=== PATIENT | female | born 1940 | race African-American/Black ===

== ENCOUNTER 2016-08-13 08:57 | Inpatient (IN) | payer OTHER ==
[~2016-08-13] VITALS: Ht 162.6 cm; Wt 81.6 kg
--- NOTE | 2016-08-13 09:17 | NUR ---
TELESTROKE CALLED [phone], DR. HAMILTON WATER LEAK REPAIRER
--- NOTE | 2016-08-13 09:22 | NUR ---
PT TAKEN TO CT VIA CHAN
[2016-08-13] MEDS ORDERED: ASPIRIN 325 MG TABLET ONE (09:49)
[2016-08-13] MEDS ORDERED: LOSA50TA21 PO (09:52)
[2016-08-13] MEDS ORDERED: DICL75TA5 PO (09:52)
[2016-08-13] MEDS ORDERED: GABA-534 PO (09:52)
[2016-08-13] MEDS ORDERED: LORA1TAB PO (09:52)
[2016-08-13] MEDS ORDERED: TRAM50TA2 PO (09:53)
[2016-08-13] MEDS ORDERED: ZOLP10TA6 PO (09:53)
[2016-08-13] MEDS ORDERED: CYCL-343 PO (09:53)
[2016-08-13] MEDS ORDERED: HYDR25TA4 PO (09:53)
[2016-08-13] MEDS ORDERED: AMIT10TA6 PO (09:53)
[2016-08-13] MEDS ORDERED: ASPIRIN 325 MG TABLET PO ONE (10:00)
[2016-08-13 10:21] LABS: EOSINOPHILS % (AUTO) 1.2 % (0.0-6.0); HEMATOCRIT 36 % (33-45); HEMOGLOBIN 11.4 g/dL (11.5-14.8); LYMPHOCYTES # (AUTO) 1.3 /CMM (0.8-4.8); LYMPHOCYTES % (AUTO) 31.6 % (20.0-44.0); MEAN CORPUSCULAR HEMOGLOBIN 24 PG (26.0-33.0); MEAN CORPUSCULAR HGB CONC 32 g/dl (31.0-36.0); MEAN CORPUSCULAR VOLUME 75 fL (82-100); MONOCYTES # (AUTO) 0.4 /CMM (0.1-1.30); MONOCYTES % (AUTO) 8.9 % (2.0-12.0); NEUTROPHILS # (AUTO) 2.4 /CMM (1.8-8.9); NEUTROPHILS % (AUTO) 57.3 % (43.0-81.0); PLATELET COUNT (AUTO) 164 /CMM (150-450); RDW COEFFICIENT OF VARIATION 14.4 (11.5-15.0); RED BLOOD CELL COUNT(AUTO) 4.82 MIL/uL (4.0-5.2); WHITE BLOOD COUNT (AUTO) 4.1 K/uL (4.3-11.0)
[2016-08-13 10:37] LABS: ALANINE AMINOTRANSFERASE 18 U/L (12-78); ALBUMIN 3.5 g/dL (3.4-5.0); ALKALINE PHOSPHATASE 118 U/L (46-116); ASPARTATE AMINOTRANSFERASE 22 U/L (15-37); BILIRUBIN,DIRECT 0.1 mg/dL (0.0-0.2); BILIRUBIN,TOTAL 0.3 mg/dL (0.2-1.0); CALCIUM, SERUM 9.3 mg/dL (8.5-10.1); CARBON DIOXIDE 28 mmol/L (21-32); CHLORIDE 108 mmol/L (98-107); GLUCOSE 89 mg/dL (74-106); POTASSIUM 4.2 mmol/L (3.5-5.1); SODIUM SERUM 140 mmol/L (136-145); TOTAL PROTEIN, SERUM 7.1 g/dL (6.4-8.2)
[2016-08-13 10:39] LABS: TROPONIN I < 0.017 ng/mL (0.00-0.056)
[2016-08-13 10:53] LABS: UREA NITROGEN, BLOOD 17 mg/dL (7-18)
[2016-08-13 10:57] LABS: PROTHROMBIN TIME 10.4 SECS (9.5-12.7)
--- NOTE | 2016-08-13 11:02 | NUR ---
contacted dr. schreiber [phone], - ellie schultz
--- NOTE | 2016-08-13 11:38 | NUR ---
GAVE REPORT TO JOVANNY HERNDONPUBLIC POLICY MANAGER ROOM [address] MURGUIA. WILL TRANSFER VIA ACLS PROTOCOL.
--- NOTE | 2016-08-13 12:00 | NUR ---
CLINICAL TRIAL DATA MANAGERTOPPER PRESS OPERATOR NOTE PATIENT IS ALERT AND ORIENTED x4. ADMITTED FROM EMERGENCY ROOM FOR RIGHT SIDED WEAKNESS. R/O POSSIBLE CVA/STROKE. IV INTACT AND PATENT NO REDNESS OR SWELLING NOTED. ON TELE, NORMAL SINUS RHYTHM WITH PULSE AT 72. HISTORY OF ARTHRITIS, BILATERAL HIP SURGERY, KNEE REPLACEMENT AND . NO PAIN AT THIS TIME. NO SOB OR DISTRESS NOTED. CALL LIGHT WITHIN REACH. SAFETY MEASURES IMPLEMENTED. SKIN INTACT. CARDIAC DIET. WILL CONTINUE TO MONITOR
[2016-08-13 12:30] VITALS: BP 157/68
--- NOTE | 2016-08-13 12:30 | NUR ---
CERAMIC SPRAYER NOTE PATIENT IS BEING TAKEN TO MRI IN WHEELCHAIR. PATIENT IS STABLE. NO PAIN AT THIS TIME. MRI CHECKLIST DONE.
--- NOTE | 2016-08-13 14:13 | NUR ---
BUSINESS SUPPORT ASSISTANT NOTE PATIENT IS BACK FROM MRI NO PAIN AT THIS TIME. NO SOB OR DISTRESS NOTED. WILL CONTINUE TO MONITOR
[2016-08-13] MEDS ORDERED: LORAZEPAM 1 MG TABLET PO PRN (15:30)
[2016-08-13] MEDS ORDERED: ZOLPIDEM TARTRATE 10 MG TABLET PO PRN (15:30)
[2016-08-13] MEDS ORDERED: TRAMADOL HCL 50 MG TABLET PO PRN ×2 (15:30→17:00)
[2016-08-13 16:00] VITALS: BP 171/64
[2016-08-13] MEDS ORDERED: DICLOFENAC SODIUM 25 MG TABLET.DR PO PRN (16:01)
[2016-08-13] MEDS: GABAPENTIN 300 MG CAPSULE PO SCH (17:08)
[2016-08-13] MEDS: AMITRIPTYLINE HCL 10 MG TABLET PO SCH (17:08)
--- NOTE | 2016-08-13 18:56 | NUR ---
PIN PUSHER CLOSING NOTE PATIENT IS ALERT AND ORIENTED x4. NO PAIN AT THIS TIME. NO SOB OR DISTRESS NOTED. ALL DUE MEDICATIONS GIVEN ORDERED. SAFETY MEASURES IMPLEMENTED. CALL LIGHT WITHIN REACH AT ALL TIMES. IV INTACT AND PATENT. WILL ENDORSE TO SPINNING MACHINE TENDER NURSE
--- NOTE | 2016-08-13 19:30 | NUR ---
TELE/RN NOTES RECEIVED PT. LYING IN BED. AWAKE, ALERT AND ORIENTED X3. BREATHING EVEN AND UNLABORED ON ROOM AIR. NO SOB, RESPIRATORY DISTRESS OR COMPLAINTS OF PAIN NOTED AT THIS TIME. PT. WITH EXTERNAL FIELD CROP II FARMWORKER PRESENT AND INTACT. CURRENT RHYTHM = SINUS RHYTHM HR 65. PT. WITH LEFT AC 20 GAUGE IV SALINE LOCK PRESENT, PATENT AND INTACT. BED IN LOWEST POSITION, CALL LIGHT WITHIN REACH, WILL CONTINUE TO MONITOR.
[2016-08-13 20:00] VITALS: BP 172/67
[2016-08-13 21:45] VITALS: BP_SYST 153
[2016-08-13] MEDS ORDERED: ATORVASTATIN 40 MG TABLET PO SCH (22:00)
[2016-08-13] MEDS ORDERED: LOSARTAN POTASSIUM 50 MG TABLET PO SCH (22:00)
[2016-08-13] MEDS ORDERED: CYCLOBENZAPRINE 10 MG TABLET PO SCH (22:00)
[2016-08-14] VITALS: BP 163/80
[2016-08-14 04:00] VITALS: BP 155/63
[2016-08-14 06:53] LABS: BASOPHILS % (AUTO) 0.4 % (0.0-2.0); EOSINOPHILS # (AUTO) 0.1 /CMM (0.0-0.7); EOSINOPHILS % (AUTO) 1.9 % (0.0-6.0); HEMATOCRIT 39 % (33-45); HEMOGLOBIN 12.1 g/dL (11.5-14.8); LYMPHOCYTES # (AUTO) 1.8 /CMM (0.8-4.8); LYMPHOCYTES % (AUTO) 38.2 % (20.0-44.0); MEAN CORPUSCULAR HEMOGLOBIN 23 PG (26.0-33.0); MEAN CORPUSCULAR HGB CONC 32 g/dl (31.0-36.0); MEAN CORPUSCULAR VOLUME 74 fL (82-100); MONOCYTES # (AUTO) 0.4 /CMM (0.1-1.30); MONOCYTES % (AUTO) 8.8 % (2.0-12.0); NEUTROPHILS # (AUTO) 2.4 /CMM (1.8-8.9); NEUTROPHILS % (AUTO) 50.7 % (43.0-81.0); PLATELET COUNT (AUTO) 189 /CMM (150-450); RDW COEFFICIENT OF VARIATION 14.9 (11.5-15.0); RED BLOOD CELL COUNT(AUTO) 5.21 MIL/uL (4.0-5.2); WHITE BLOOD COUNT (AUTO) 4.8 K/uL (4.3-11.0)
[2016-08-14 06:58] VITALS: BP 165/63
[2016-08-14 07:05] LABS: CALCIUM, SERUM 9.4 mg/dL (8.5-10.1); CREATININE 0.9 mg/dL (0.6-1.3); POTASSIUM 4.3 mmol/L (3.5-5.1)
[2016-08-14 07:16] LABS: THYROID STIMULATING HORMONE 1.759 uIU/mL (0.358-3.74)
--- NOTE | 2016-08-14 07:20 | NUR ---
FIRER MARINE NOTES FOUND PATIENT ALERT AND ORIENTED, STANDING BY THE BED, ATTENDED NEEDS, NO S/SX OF DISTRESS NOTED, NO COMPLAINT OF PAIN OR RIGHT HAND WEAKNESS AT THIS TIME, SAFETY MEASURES IN PLACED, CALL LIGHT WITHIN REACH, WILL CONTINUE TO MONITOR.
[2016-08-14 08:00] VITALS: BP 165/63
[2016-08-14] MEDS ORDERED: HYDROCHLOROTHIAZIDE 25 MG TABLET PO SCH (09:00)
[2016-08-14] MEDS ORDERED: ASPIRIN EC 325 MG TABLET.DR PO SCH (09:00)
[2016-08-14 09:09] VITALS: BP 165/63
[2016-08-14 09:09] LABS: LYMPHOCYTES % (MANUAL) 47 % (16-48); MONOCYTES % (MANUAL) 5 % (0-11.0); NEUTROPHILS % (MANUAL) 48 (42-76)
[2016-08-14] MEDS: GABAPENTIN 300 MG CAPSULE PO SCH (09:09)
[2016-08-14] MEDS: AMITRIPTYLINE HCL 10 MG TABLET PO SCH (09:09)
[2016-08-14 09:11] LABS: PLATELET ESTIMATE ADEQUATE
[2016-08-14 09:12] LABS: ANISOCYTOSIS 1+; HYPOCHROMASIA 1+
[2016-08-14] MEDS ORDERED: ATOR40TA PO (11:31)
[2016-08-14] MEDS ORDERED: Aspirin PO (11:31)
--- NOTE | 2016-08-14 14:00 | NUR ---
RN MS NOTES PATIENT RECEIVED DISCHARGED INSTRUCTIONS AND VERBALIZED UNDERSTANDING, DEMONSTRATED USE OF RIGHT HAND SPLINT, PATIENT ABLE TO RETURN DEMO, PIV REMOVED WITH NO BLEEDING, SKIN ASSESSMENT COMPLETED, SKIN DRY AND INTACT, IMMUNIZATIONS ARE UPTODATE, PATIENT IN STABLE CONDITION LEFT THE FACILITY AT 1400 ACCOMPANIED BY A FRIEND.
== END 2016-08-14 14:07 | disposition home or self-care (01) | DRG 74 ==
LOC: ER 08:59 → TELE 11:34 → MED 08-14 11:46
PROVIDERS: ADMIT Internal Medicine; ATTEND Internal Medicine
DX: G62.9 Polyneuropathy, unspecified (principal); I10 Essential (primary) hypertension; M19.90 Unspecified osteoarthritis, unspecified site
CPT/HCPCS: 36415; 70450-TC; 70551-TC; 71010-TC; 80048-TC; 80061-TC; 80076-TC; 82962-TC; 84443-TC; 84484-TC; 85025-TC; 85730-TC; 86850-TC; 87081-TC; 93307-TC; 93880-TC; A4606; Z7610

== ENCOUNTER 2016-12-10 10:11 | Emergency (ER) | payer OTHER ==
[~2016-12-10] VITALS: Ht 165.1 cm; Wt 77.1 kg
[~2016-12-10 10:11] MED LIST: AMIT10TA6 PO; ATOR40TA PO; Aspirin PO; CYCL-343 PO; DICL75TA5 PO; GABA-534 PO; HYDR25TA4 PO; LORA1TAB PO; LOSA50TA21 PO; TRAM50TA2 PO; ZOLP10TA6 PO
--- NOTE | 2016-12-10 10:22 | NUR ---
PRESENTS SELF TO ED FOR BLE EDEMA SINCE TUESDAY NIGHT. VSS
[2016-12-10 11:03] LABS: BASOPHILS # (AUTO) 0.1 /CMM (0.0-0.2); EOSINOPHILS # (AUTO) 0.1 /CMM (0.0-0.7); EOSINOPHILS % (AUTO) 1.7 % (0.0-6.0); HEMOGLOBIN 10.9 g/dL (11.5-14.8); LYMPHOCYTES # (AUTO) 1.6 /CMM (0.8-4.8); MONOCYTES # (AUTO) 0.5 /CMM (0.1-1.30); NEUTROPHILS # (AUTO) 3.4 /CMM (1.8-8.9); WHITE BLOOD COUNT (AUTO) 5.7 K/uL (4.3-11.0)
[2016-12-10 11:06] LABS: BASOPHILS % (AUTO) 1.9 % (0.0-2.0); HEMATOCRIT 35 % (33-45); LYMPHOCYTES % (AUTO) 28.4 % (20.0-44.0); MEAN CORPUSCULAR HEMOGLOBIN 23 PG (26.0-33.0); MEAN CORPUSCULAR HGB CONC 31 g/dl (31.0-36.0); MEAN CORPUSCULAR VOLUME 74 fL (82-100); MONOCYTES % (AUTO) 7.9 % (2.0-12.0); NEUTROPHILS % (AUTO) 60.1 % (43.0-81.0); PLATELET COUNT (AUTO) 200 /CMM (150-450); RDW COEFFICIENT OF VARIATION 14.5 (11.5-15.0); RED BLOOD CELL COUNT(AUTO) 4.75 MIL/uL (4.0-5.2)
[2016-12-10 11:12] LABS: CALCIUM, SERUM 9.1 mg/dL (8.5-10.1); CARBON DIOXIDE 29 mmol/L (21-32); CHLORIDE 108 mmol/L (98-107); GLUCOSE 95 mg/dL (74-106); POTASSIUM 4.4 mmol/L (3.5-5.1); SODIUM SERUM 143 mmol/L (136-145)
[2016-12-10 11:15] LABS: PROTHROMBIN TIME 10.4 SECS (9.5-12.7)
[2016-12-10 11:42] VITALS: BP 110/72
--- NOTE | 2016-12-10 11:42 | NUR ---
Patient discharged to home in stable condition. Written and verbal after care instructions given. Patient verbalizes understanding of instruction.
[2016-12-10 11:45] LABS: UREA NITROGEN, BLOOD 16 mg/dL (7-18)
[2016-12-10 12:17] LABS: EOSINOPHILS % (MANUAL) 1 % (0-4); LYMPHOCYTES % (MANUAL) 27 % (16-48); MONOCYTES % (MANUAL) 13 % (0-11.0); NEUTROPHILS % (MANUAL) 59 (42-76)
== END 2016-12-10 11:43 | disposition home or self-care (01) ==
LOC: ER 10:12
DX: M79.89 Other specified soft tissue disorders (principal)
CPT/HCPCS: 36415; 80048; 85025; 85730; 93971; 99285; A4606; Z7610

== ENCOUNTER 2016-12-18 10:08 | Emergency (ER) | payer OTHER ==
[~2016-12-18] VITALS: Ht 162.6 cm; Wt 77.1 kg
[2016-12-18 10:08] VITALS: BP 130/65
== END 2016-12-18 10:55 | disposition home or self-care (01) ==
LOC: ER 10:11
DX: S91.301A Unspecified open wound, right foot, initial encounter (principal); I10 Essential (primary) hypertension; Z98.890 Other specified postprocedural states; X58.XXXA Exposure to other specified factors, initial encounter; Y92.89 Other specified places as the place of occurrence of the external cause; Y93.89 Activity, other specified; Y99.8 Other external cause status
CPT/HCPCS: A4606; Z7610

== ENCOUNTER 2016-12-27 11:58 | Inpatient (IN) | payer OTHER ==
[~2016-12-27] VITALS: Ht 162.6 cm; Wt 79.1 kg
--- NOTE | 2016-12-27 11:58 | NUR ---
C/O R SIDE NUMBNESS AND WEAKNESS LKW 8PM LAST NIGHT. NAD NOTED PT AAO X4 AND AMBULATORY. NAD NOTED. RR EVEN AND UNLABORED. VSS. DR PERRY AT BEDSIDE FOR EVAL.
[2016-12-27 12:25] LABS: BASOPHILS # (AUTO) 0.1 /CMM (0.0-0.2); BASOPHILS % (AUTO) 3.3 % (0.0-2.0); EOSINOPHILS # (AUTO) 0.1 /CMM (0.0-0.7); EOSINOPHILS % (AUTO) 1.4 % (0.0-6.0); HEMATOCRIT 33 % (33-45); HEMOGLOBIN 10.6 g/dL (11.5-14.8); LYMPHOCYTES # (AUTO) 1.4 /CMM (0.8-4.8); LYMPHOCYTES % (AUTO) 36.2 % (20.0-44.0); MEAN CORPUSCULAR HEMOGLOBIN 24 PG (26.0-33.0); MEAN CORPUSCULAR HGB CONC 32 g/dl (31.0-36.0); MEAN CORPUSCULAR VOLUME 73 fL (82-100); MONOCYTES # (AUTO) 0.3 /CMM (0.1-1.30); MONOCYTES % (AUTO) 7.3 % (2.0-12.0); NEUTROPHILS % (AUTO) 51.8 % (43.0-81.0); PLATELET COUNT (AUTO) 214 /CMM (150-450); RDW COEFFICIENT OF VARIATION 14.4 (11.5-15.0); RED BLOOD CELL COUNT(AUTO) 4.51 MIL/uL (4.0-5.2); WHITE BLOOD COUNT (AUTO) 3.9 K/uL (4.3-11.0)
[2016-12-27 12:35] LABS: CALCIUM, SERUM 9.1 mg/dL (8.5-10.1); CARBON DIOXIDE 26 mmol/L (21-32); CHLORIDE 107 mmol/L (98-107); CREATININE 1.2 mg/dL (0.6-1.3); GLUCOSE 107 mg/dL (74-106); SODIUM SERUM 139 mmol/L (136-145); UREA NITROGEN, BLOOD 25 mg/dL (7-18)
[2016-12-27 12:39] LABS: INR 1.01 (0.87-1.13); PROTHROMBIN TIME 10.5 SECS (9.5-12.7)
[2016-12-27 12:41] LABS: ALANINE AMINOTRANSFERASE 17 U/L (12-78); ALBUMIN 3.7 g/dL (3.4-5.0); ALKALINE PHOSPHATASE 109 U/L (46-116); ASPARTATE AMINOTRANSFERASE 37 U/L (15-37); BILIRUBIN,DIRECT 0.1 mg/dL (0.0-0.2); BILIRUBIN,TOTAL 0.5 mg/dL (0.2-1.0); TOTAL PROTEIN, SERUM 7.2 g/dL (6.4-8.2)
[2016-12-27 12:43] LABS: TROPONIN I < 0.017 ng/mL (0.00-0.056)
--- NOTE | 2016-12-27 12:57 | NUR ---
MRI APPROVED.WILL BE DONE AT 1PM
[2016-12-27 13:08] LABS: EOSINOPHILS % (MANUAL) 3 % (0-4); LYMPHOCYTES % (MANUAL) 38 % (16-48); MONOCYTES % (MANUAL) 6 % (0-11.0); NEUTROPHILS % (MANUAL) 53 (42-76)
--- NOTE | 2016-12-27 13:18 | NUR ---
PATIENT WILL BE ADMITTED INTO ROOM 310-1.
[2016-12-27] MEDS ORDERED: CEPH500C2 PO (13:29)
[2016-12-27] MEDS ORDERED: ATOR10TA PO (13:29)
--- NOTE | 2016-12-27 14:24 | NUR ---
CALLED DR ORLANDO HERNANDEZ ON THE PHONE WITH HIM.
--- NOTE | 2016-12-27 14:29 | NUR ---
REPORT GIVEN TO THIEN HERNDON FOR SALTY
[2016-12-27] MEDS ORDERED: ASPIRIN 325 MG TABLET ONE (14:35)
[2016-12-27] MEDS ORDERED: ASPIRIN 325 MG TABLET PO ONE (15:00)
--- NOTE | 2016-12-27 15:10 | NUR ---
MS/RN Call for orders Call placed to Dr Au called for admitting orders.
--- NOTE | 2016-12-27 15:42 | NUR ---
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
[2016-12-27] MEDS ORDERED: TRAMADOL HCL 50 MG TABLET PO PRN (16:00)
[2016-12-27] MEDS ORDERED: AMITRIPTYLINE HCL 10 MG TABLET PO SCH (16:00)
[2016-12-27] MEDS ORDERED: LORAZEPAM 1 MG TABLET PO PRN (16:00)
[2016-12-27] MEDS ORDERED: HYDROCHLOROTHIAZIDE 25 MG TABLET PO SCH (16:00)
--- NOTE | 2016-12-27 16:20 | NUR ---
MS/RN ADMITTING PATIENT ADMITTED FROM ER IN STABLE CONDITION. ALERT AND ORIENTED TIMES 4 NO SIGNS OF ACUTE DISTRESS. NO COMPLAIN OF PAIN OR DISCOMFORT. ALL NEEDS ATTENDED TO. CALL LIGHT WITHIN REACH. WILL CONTINUE TO MONITOR TO ENSURE SAFETY.
--- NOTE | 2016-12-27 16:30 | NUR ---
MS/RN Wrist brace [employer] called, tech here to fit brace to right wrist.
--- NOTE | 2016-12-27 16:46 | NUR ---
MS/RN Patient's neurologist information Patient's neurologist contact information: -Dr Almaz Ruiz -
[2016-12-27] MEDS ORDERED: GABAPENTIN 300 MG CAPSULE PO SCH (17:00)
--- NOTE | 2016-12-27 17:15 | NUR ---
MS/RN Orders Dr Au given orders that patient may be discharged to home as brace now in place and no clinical reason for overnight stay in the hospital. Stated that if he had been made aware by ER, the patient would of been held and seen and discharged frm that department.
[2016-12-27 17:18] VITALS: BP 155/72
--- NOTE | 2016-12-27 17:53 | NUR ---
MS/work force advisor Patient discharged to home in stable condition. Heplock, name bands and tele removed. All personal belongings accounted for and signed for on belongings list. Patient instructed on the importance of following up with primary care doctor and with her neurologist. Stated that she would make her own appointment. -Dr Geneva Ruiz - Education provided on care of wrist with brace, including removal of brace to ensure no pressure sores appear.
--- NOTE | 2016-12-27 17:59 | NUR ---
MS/SIZING MACHINE TENDER PATIENT DISCHARGE HOME IN STABLE CONDITION. ALERT AND ORIENTED TIMES 4. NAME BAND REMOVED. IV LINE REMOVED. TOLERATED WELL. PICKED UP BY FRIEND. DISCHARGE EDUCATION PROVIDED. VERBALIZED UNDERSTANDING OF TEACHINGS. ALSO PER PATIENT, SHE WILL FOLLOW UP WITH HER NEUROLOGIST.
[2016-12-27] MEDS ORDERED: ZOLPIDEM TARTRATE 10 MG TABLET PO PRN (22:00)
[2016-12-27] MEDS ORDERED: LOSARTAN POTASSIUM 50 MG TABLET PO SCH (22:00)
== END 2016-12-27 17:56 | disposition home or self-care (01) | DRG 74 ==
LOC: ER 12:00 → TELE 14:33
PROVIDERS: ADMIT Internal Medicine; ATTEND Internal Medicine
DX: G62.9 Polyneuropathy, unspecified (principal); I10 Essential (primary) hypertension; F41.9 Anxiety disorder, unspecified; M19.90 Unspecified osteoarthritis, unspecified site; Z79.899 Other long term (current) drug therapy
CPT/HCPCS: 36415; 70450-TC; 70551-TC; 71010-TC; 80048-TC; 80076-TC; 82962-TC; 84484-TC; 85025-TC; 85730-TC; 87081-TC; A4606; Z7610

== ENCOUNTER 2017-03-03 15:46 | Emergency (ER) | payer OTHER ==
[~2017-03-03] VITALS: Ht 165.1 cm; Wt 75.7 kg
[~2017-03-03 15:46] MED LIST changes: +ATOR10TA PO; -ATOR40TA PO; -Aspirin PO; +CEPH500C2 PO; -DICL75TA5 PO
[2017-03-03 15:49] VITALS: BP 148/112
[2017-03-03] MEDS ORDERED: KETOROLAC TROMETHAMINE INJ 30 MG/ML VIAL ONE (16:09)
[2017-03-03] MEDS ORDERED: KETOROLAC TROMETHAMINE INJ 60 MG/2 ML VIAL IM ONE (16:30)
== END 2017-03-03 16:43 | disposition home or self-care (01) ==
LOC: ER 15:48
DX: M54.42 Lumbago with sciatica, left side (principal); I10 Essential (primary) hypertension; Z98.890 Other specified postprocedural states
CPT/HCPCS: 96372; 99283; A4606; J1885; Z7610

== ENCOUNTER 2019-02-07 12:20 | Emergency (ER) | payer OTHER ==
[~2019-02-07] VITALS: Ht 165.1 cm; Wt 72.6 kg
[~2019-02-07 12:20] MED LIST changes: -CYCL-343 PO; +CYCL10TA9 PO; -LOSA50TA21 PO; +LOSA50TA39 PO
--- NOTE | 2019-02-07 12:25 | NUR ---
PT BIB FAMILY. C/O "SLURRING OF SPEECH NOTED YESTERDAY AT 1730. THIS MORNING STATES NOTICED TONGUE IS SWOLLEN AFTER EATING FRUIT AND BAGEL AND TAKING TRAMADOL. PT DENIES DIFFICULTY BREATHING, DENIES CHEST PAIN. NO NEURO DEFICIT NOTED WAIST PRESSER. PLACED ON MONITOR. VSS. AWAITING MD NEWMAN.
--- NOTE | 2019-02-07 12:43 | NUR ---
DR MOTTA AT BEDSIDE FOR EVAL.
[2019-02-07] MEDS ORDERED: diphenhydrAMINE HCL 50 MG/ML VIAL ONE (12:54)
[2019-02-07] MEDS ORDERED: methylPREDNISolone SOD SUCC 125 MG/2ML VIAL ONE (12:55)
[2019-02-07] MEDS ORDERED: FAMOTIDINE/PF INJ 40 MG in IV D5W 250 ML IV ONE (13:00)
[2019-02-07] MEDS ORDERED: diphenhydrAMINE HCL 50 MG/ML VIAL IV ONE (13:00)
[2019-02-07] MEDS ORDERED: methylPREDNISolone SOD SUCC 125 MG/2ML VIAL IV ONE (13:00)
--- NOTE | 2019-02-07 13:10 | NUR ---
MEDICATED ORDERED. SEE EMAR.
[2019-02-07 15:23] VITALS: BP 135/81
--- NOTE | 2019-02-07 15:24 | NUR ---
Patient discharged to home in stable condition. Written and verbal after care instructions given. Patient verbalizes understanding of instruction.IV removed. Catheter intact and site benign. Pressure and 4x4 applied to site. No bleeding noted.
== END 2019-02-07 15:24 | disposition home or self-care (01) ==
LOC: ER 12:25
DX: T78.3XXA Angioneurotic edema, initial encounter (principal); I10 Essential (primary) hypertension; M19.90 Unspecified osteoarthritis, unspecified site; Z98.890 Other specified postprocedural states; Z60.2 Problems related to living alone; Z79.899 Other long term (current) drug therapy
CPT/HCPCS: 93005; 96365; 96375; 99283; J1200; J2930; J3490; J7060

== ENCOUNTER 2019-03-13 17:00 | Emergency (ER) | payer OTHER ==
--- NOTE | 2019-03-13 18:45 | NUR ---
called for triage not in the waiting room
--- NOTE | 2019-03-13 18:51 | NUR ---
called for triage not in the waiting room
--- NOTE | 2019-03-13 19:06 | NUR ---
called for triage not in the waiting room
== END 2019-03-13 19:07 | disposition left against medical advice (07) ==
LOC: ER 17:06
DX: Z53.21 Procedure and treatment not carried out due to patient leaving prior to being seen by health care provider (principal)

== ENCOUNTER 2019-03-27 14:59 | Emergency (ER) | payer OTHER ==
[~2019-03-27] VITALS: Ht 165.1 cm; Wt 74.8 kg
[2019-03-27] MEDS ORDERED: FAMOTIDINE/PF INJ 20 MG/2 ML VIAL IV ONE (15:26)
[2019-03-27] MEDS ORDERED: EPINEPHRINE (1:1000) 1 MG/ML AMPUL ONE (15:27)
[2019-03-27] MEDS ORDERED: methylPREDNISolone SOD SUCC 125 MG/2ML VIAL ONE (15:28)
[2019-03-27] MEDS ORDERED: diphenhydrAMINE HCL 50 MG/ML VIAL ONE (15:28)
[2019-03-27] MEDS ORDERED: FAMOTIDINE/PF INJ 40 MG in IV D5W 250 ML IV ONE (15:30)
[2019-03-27] MEDS ORDERED: EPINEPHRINE (1:1000) MDV 30 MG/30ML VIAL SUBCUT ONE (15:30)
[2019-03-27] MEDS ORDERED: diphenhydrAMINE HCL 50 MG/ML VIAL IV ONE (15:30)
[2019-03-27] MEDS ORDERED: methylPREDNISolone SOD SUCC 125 MG/2ML VIAL IV ONE (15:30)
--- NOTE | 2019-03-27 15:30 | NUR ---
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 on , connected to the monitor and pulse ox. Kept comfortable, will continue to monitor accordingly.
[2019-03-27 16:23] LABS: ALANINE AMINOTRANSFERASE 10 U/L (12-78); ALBUMIN 3.3 g/dL (3.4-5.0); ALKALINE PHOSPHATASE 88 U/L (46-116); ASPARTATE AMINOTRANSFERASE 38 U/L (15-37); BILIRUBIN,TOTAL 0.4 mg/dL (0.2-1.0); CARBON DIOXIDE 21 mmol/L (21-32); CHLORIDE 108 mmol/L (98-107); CREATININE 2.4 mg/dL (0.6-1.3); GLUCOSE 154 mg/dL (74-106); POTASSIUM 4.5 mmol/L (3.5-5.1); SODIUM SERUM 137 mmol/L (136-145); UREA NITROGEN, BLOOD 40 mg/dL (7-18)
[2019-03-27] MEDS ORDERED: DICL75TA5 PO ×2 (16:23→18:06)
[2019-03-27] MEDS ORDERED: LORA2TAB95 PO (16:23)
[2019-03-27] MEDS ORDERED: METR-147 PO ×2 (16:23→18:06)
[2019-03-27 16:30] LABS: BASOPHILS % (AUTO) 0.3 % (0.0-2.0); EOSINOPHILS % (AUTO) 1.3 % (0.0-6.0); HEMATOCRIT 38 % (33-45); HEMOGLOBIN 11.5 g/dL (11.5-14.8); LYMPHOCYTES # (AUTO) 2.1 /CMM (0.8-4.8); LYMPHOCYTES % (AUTO) 32.8 % (20.0-44.0); MEAN CORPUSCULAR HGB CONC 30 g/dl (31.0-36.0); MEAN CORPUSCULAR VOLUME 76 fL (82-100); MONOCYTES # (AUTO) 0.8 /CMM (0.1-1.30); MONOCYTES % (AUTO) 12.1 % (2.0-12.0); NEUTROPHILS # (AUTO) 3.4 /CMM (1.8-8.9); NEUTROPHILS % (AUTO) 53.5 % (43.0-81.0); PLATELET COUNT (AUTO) 164 /CMM (150-450); RED BLOOD CELL COUNT(AUTO) 5.03 MIL/uL (4.0-5.2); WHITE BLOOD COUNT (AUTO) 6.4 K/uL (4.3-11.0)
--- NOTE | 2019-03-27 17:02 | NUR ---
patient asleep, in no distress.
--- NOTE | 2019-03-27 17:30 | NUR ---
CALLED NURSING SUP FOR BED.
[2019-03-27] MEDS ORDERED: AMIT10TA6 PO (18:04)
[2019-03-27] MEDS ORDERED: CYCL5TAB PO (18:06)
[2019-03-27] MEDS ORDERED: GABA-534 PO (18:06)
[2019-03-27] MEDS ORDERED: ATOR10TA PO (18:07)
[2019-03-27 19:11] VITALS: BP 128/71
--- NOTE | 2019-03-27 19:12 | NUR ---
Patient does not wish to proceed with medical care recommended by Dr. Alva. Patient given information related to possible complications, up to and including , which could occur as a result of leaving the hospital at this time. Patient verbalizes understanding of risks involved due to leaving against medical advice. Patient has signed AMA form.
== END 2019-03-27 19:11 | disposition left against medical advice (07) ==
LOC: ER 14:59
DX: T78.3XXA Angioneurotic edema, initial encounter (principal); I10 Essential (primary) hypertension; M19.90 Unspecified osteoarthritis, unspecified site; Z98.890 Other specified postprocedural states; Z60.2 Problems related to living alone; Z79.899 Other long term (current) drug therapy
CPT/HCPCS: 36415; 71045; 80048; 80076; 85025; 93005; 96365; 96372; 96375; 99284; J0171 ×2; J1200; J2930; J3490; J7050

== ENCOUNTER 2020-06-08 19:28 | Emergency (ER) | payer OTHER ==
[~2020-06-08] VITALS: Ht 165.1 cm; Wt 104.3 kg
[~2020-06-08 19:28] MED LIST changes: -CEPH500C2 PO; -CYCL10TA9 PO; +CYCL5TAB PO; +DICL75TA5 PO; -HYDR25TA4 PO; -LORA1TAB PO; +LORA2TAB95 PO; -LOSA50TA39 PO; +METR-147 PO; -TRAM50TA2 PO
--- NOTE | 2020-06-08 19:57 | NUR ---
BIBS FROM HOME TO ER BED 6. AAXO4. NOT IN RESP DISTRESS. AMBULATORY. CAME IN FOR L FACE PAIN W/ LACERATION ON L EYEBROW, LOWER BACK AND L HIP PAIN S/P FALL. PER PT, SHE WAS WALKING HER DOG AND HER DOG PULL HER CAUSING HER TO FALL DOWN. PT DID HIT HER HEAD BUT DENIED KO NOTED A LACERATION 3CM IN LENGTH AND BLEEDING. PAIN IS RATED 7/10. MD WAS AT THE BEDSIDE FOR EVAL. ORDERS RECEIVED, NOTED AND CARRIED OUT.
[2020-06-08] MEDS ORDERED: LIDOCAINE 1%-EPI 1:100,000 50 ML VIAL IJ ONE (20:00)
[2020-06-08] MEDS ORDERED: LIDOCAINE 2%-EPI 1:100,000 30 ML VIAL ONE (20:15)
[2020-06-08 20:26] LABS: BASOPHILS % (AUTO) 0.2 % (0.0-2.0); HEMATOCRIT 35 % (33-45); HEMOGLOBIN 10.8 g/dL (11.5-14.8); LYMPHOCYTES # (AUTO) 0.7 /CMM (0.8-4.8); LYMPHOCYTES % (AUTO) 7.1 % (20.0-44.0); MEAN CORPUSCULAR HGB CONC 31 g/dl (31.0-36.0); MEAN CORPUSCULAR VOLUME 76 fL (82-100); MONOCYTES # (AUTO) 0.7 /CMM (0.1-1.30); MONOCYTES % (AUTO) 6.9 % (2.0-12.0); NEUTROPHILS # (AUTO) 8.2 /CMM (1.8-8.9); NEUTROPHILS % (AUTO) 85.8 % (43.0-81.0); PLATELET COUNT (AUTO) 174 /CMM (150-450); RED BLOOD CELL COUNT(AUTO) 4.56 MIL/uL (4.0-5.2); WHITE BLOOD COUNT (AUTO) 9.6 K/uL (4.3-11.0)
[2020-06-08 20:43] LABS: CALCIUM, SERUM 9.5 mg/dL (8.5-10.1); CARBON DIOXIDE 29 mmol/L (21-32); CHLORIDE 107 mmol/L (98-107); CREATININE 1.4 mg/dL (0.6-1.3); GLUCOSE 159 mg/dL (74-106); POTASSIUM 4.8 mmol/L (3.5-5.1); SODIUM SERUM 142 mmol/L (136-145); UREA NITROGEN, BLOOD 33 mg/dL (7-18)
[2020-06-08] MEDS ORDERED: IV NS 0.9% 1,000 ML BAG IV ONE (21:00)
--- NOTE | 2020-06-08 21:11 | NUR ---
PT REFUSED TO HAVE AN IV.
--- NOTE | 2020-06-08 21:54 | NUR ---
Patient discharged to home in stable condition. Written and verbal after care instructions given. Patient verbalizes understanding of instruction. Pt ambulatory with a steady gait
[2020-06-08 21:55] VITALS: BP 136/62
[2020-06-08] MEDS ORDERED: NEOMY SULF/BACITRAC ZN/POLY 15 GM TUBE TP SCH (22:00)
[2020-06-08] MEDS ORDERED: HYDROCODONE/APAP 5/325MG TABLET PO ONE (22:00)
[2020-06-08] MEDS ORDERED: TDAP [DIPH/PERTUSSIS/TET] 0.5 ML VIAL IM ONE (22:00)
== END 2020-06-08 21:56 | disposition home or self-care (01) ==
LOC: ER 19:29
DX: S01.112A Laceration without foreign body of left eyelid and periocular area, initial encounter (principal); S16.1XXA Strain of muscle, fascia and tendon at neck level, initial encounter; S39.012A Strain of muscle, fascia and tendon of lower back, initial encounter; E86.0 Dehydration; L98.9 Disorder of the skin and subcutaneous tissue, unspecified; I10 Essential (primary) hypertension; M19.90 Unspecified osteoarthritis, unspecified site; Z98.890 Other specified postprocedural states; Z60.2 Problems related to living alone; Z79.899 Other long term (current) drug therapy; W01.0XXA Fall on same level from slipping, tripping and stumbling without subsequent striking against object, initial encounter; Y93.K1 Activity, walking an animal; Y92.89 Other specified places as the place of occurrence of the external cause; Y99.8 Other external cause status
CPT/HCPCS: 12013; 36415; 70450; 71045; 72125; 72131; 72192; 80048; 85025; 99285; A6403; J3490 ×2; J7030

== ENCOUNTER 2020-06-17 11:25 | Emergency (ER) | payer OTHER ==
[~2020-06-17] VITALS: Ht 162.6 cm; Wt 68.0 kg
[2020-06-17 11:39] VITALS: BP 158/67
--- NOTE | 2020-06-17 11:54 | NUR ---
Patient discharged to home in stable condition. Written and verbal after care instructions given. Patient verbalizes understanding of instruction.
== END 2020-06-17 11:53 | disposition home or self-care (01) ==
LOC: ER 11:31
DX: S01.112D Laceration without foreign body of left eyelid and periocular area, subsequent encounter (principal); I10 Essential (primary) hypertension; M19.90 Unspecified osteoarthritis, unspecified site; Z98.890 Other specified postprocedural states; Z60.2 Problems related to living alone; Z79.899 Other long term (current) drug therapy; X58.XXXD Exposure to other specified factors, subsequent encounter

== ENCOUNTER 2020-11-29 10:40 | Emergency (ER) | payer OTHER ==
[~2020-11-29] VITALS: Ht 165.1 cm; Wt 81.6 kg
[2020-11-29] MEDS ORDERED: LOSA50TA39 PO (10:56)
[2020-11-29] MEDS ORDERED: OXYB10TA30 PO (10:56)
[2020-11-29] MEDS ORDERED: DONE5TAB34 PO (10:56)
[2020-11-29 12:18] LABS: BASOPHILS # (AUTO) 0.1 K/uL (0.0-0.2); BASOPHILS % (AUTO) 1.7 % (0.0-2.0); EOSINOPHILS % (AUTO) 1.2 % (0.0-6.0); HEMATOCRIT 35 % (33-45); HEMOGLOBIN 10.8 g/dL (11.5-14.8); LYMPHOCYTES # (AUTO) 1.2 K/uL (0.8-4.8); LYMPHOCYTES % (AUTO) 28.6 % (20.0-44.0); MEAN CORPUSCULAR HGB CONC 31 g/dl (31.0-36.0); MEAN CORPUSCULAR VOLUME 77 fL (82-100); MONOCYTES # (AUTO) 0.3 K/uL (0.1-1.30); MONOCYTES % (AUTO) 7.9 % (2.0-12.0); NEUTROPHILS # (AUTO) 2.6 K/uL (1.8-8.9); NEUTROPHILS % (AUTO) 60.6 % (43.0-81.0); PLATELET COUNT (AUTO) 166 K/uL (150-450); WHITE BLOOD COUNT (AUTO) 4.3 K/uL (4.3-11.0)
[2020-11-29 12:38] LABS: CHOLESTEROL 121 mg/dL (<200); HDL CHOLESTEROL 57 mg/dL (40-60); LDL 51 mg/dL (0-99); TRIGLYCERIDES 26 mg/dL (30-150)
[2020-11-29 12:53] LABS: CALCIUM, SERUM 9.3 mg/dL (8.5-10.1); CARBON DIOXIDE 28 mmol/L (21-32); CHLORIDE 107 mmol/L (98-107); CREATININE 1.5 mg/dL (0.6-1.3); GLUCOSE 117 mg/dL (74-106); POTASSIUM 4.6 mmol/L (3.5-5.1); SODIUM SERUM 144 mmol/L (136-145); UREA NITROGEN, BLOOD 44 mg/dL (7-18)
--- NOTE | 2020-11-29 13:15 | NUR ---
MOVE SHEET SUBMITTED
[2020-11-29] MEDS ORDERED: ASPIRIN EC 81 MG TABLET.DR PO ONE ×2 (13:30→13:47)
[2020-11-29] MEDS ORDERED: IV NS 0.9% 1,000 ML BAG IV ONE (13:30)
--- NOTE | 2020-11-29 13:45 | NUR ---
80 years old female alert, oriented x4 presents to er c/o left shoulder pain, hand tingling denies cp.
--- NOTE | 2020-11-29 14:07 | NUR ---
[facility] CALLED PLEASES SEND CLINICALS TO FAX [phone] TEL [phone]
[2020-11-29] MEDS ORDERED: AMLO2.5T2 PO (15:58)
--- NOTE | 2020-11-29 16:06 | NUR ---
DEMETRIO MATHEWS RESULT TO [facility] [phone]
--- NOTE | 2020-11-29 17:02 | NUR ---
PT ACCEPTED TO [facility] UNDER DR. BASS ROOM 620-A CALL [phone] [facility] WILL PICKUP AT 1830 PER NGUYEN
--- NOTE | 2020-11-29 17:12 | NUR ---
report given to nurse Persaud at [facility] all questions answered. patient informed of transfer.
[2020-11-29 17:15] VITALS: BP 160/70
--- NOTE | 2020-11-29 18:52 | NUR ---
patient transfer to [facility] via ACLS report given to ambulance staff all questions answered.
== END 2020-11-29 18:56 | disposition short-term general hospital (02) ==
LOC: ER 10:47
DX: G45.9 Transient cerebral ischemic attack, unspecified (principal); E86.0 Dehydration; M19.90 Unspecified osteoarthritis, unspecified site; I10 Essential (primary) hypertension; Z79.899 Other long term (current) drug therapy; M48.02 Spinal stenosis, cervical region; M50.221 Other cervical disc displacement at C4-C5 level; R20.2 Paresthesia of skin; E04.2 Nontoxic multinodular goiter; Z20.822 Contact with and (suspected) exposure to COVID-19
CPT/HCPCS: 36415; 70450; 71045; 72125; 80048; 80061; 84484; 85025; 85730; 87426; 93005; 96360; 96361; 99285; J7030; C9803

== ENCOUNTER 2021-03-16 10:48 | Emergency (ER) | payer OTHER ==
[~2021-03-16] VITALS: Ht 162.6 cm; Wt 65.3 kg
[~2021-03-16 10:48] MED LIST changes: +AMLO2.5T2 PO; -ATOR10TA PO; -DICL75TA5 PO; +DONE5TAB34 PO; +LOSA50TA39 PO; -METR-147 PO; +OXYB10TA30 PO
--- NOTE | 2021-03-16 11:03 | NUR ---
TO ER BED 1 BIB FRIEND C/O GENERALIZED BODY PAIN/ WEAKNESS X 3 DAYS. AAOX3, SHE SAID SHE HAS NO APPETITE, CONNECTED TO MONITOR
[2021-03-16 11:55] LABS: BASOPHILS % (AUTO) 0.9 % (0.0-2.0); EOSINOPHILS % (AUTO) 0.8 % (0.0-6.0); HEMATOCRIT 42 % (33-45); HEMOGLOBIN 13.3 g/dL (11.5-14.8); LYMPHOCYTES # (AUTO) 1.4 K/uL (0.8-4.8); MEAN CORPUSCULAR HGB CONC 32 g/dl (31.0-36.0); MEAN CORPUSCULAR VOLUME 76 fL (82-100); MONOCYTES # (AUTO) 0.4 K/uL (0.1-1.30); MONOCYTES % (AUTO) 9.4 % (2.0-12.0); NEUTROPHILS # (AUTO) 2.2 K/uL (1.8-8.9); NEUTROPHILS % (AUTO) 54.9 % (43.0-81.0); PLATELET COUNT (AUTO) 185 K/uL (150-450); RED BLOOD CELL COUNT(AUTO) 5.58 MIL/uL (4.0-5.2)
[2021-03-16 12:09] LABS: CALCIUM, SERUM 9.8 mg/dL (8.5-10.1); CARBON DIOXIDE 29 mmol/L (21-32); CHLORIDE 102 mmol/L (98-107); CREATININE 1.3 mg/dL (0.6-1.3); GLUCOSE 112 mg/dL (74-106); POTASSIUM 4.1 mmol/L (3.5-5.1); SODIUM SERUM 140 mmol/L (136-145); UREA NITROGEN, BLOOD 22 mg/dL (7-18)
--- NOTE | 2021-03-16 12:09 | NUR ---
UNABLE TO PROVIDE URINE SAMPLE AT THIS TIME
--- NOTE | 2021-03-16 12:09 | NUR ---
Calista bradley in ED - 03/16/21 at 1215 by NATHAN URINE COLLECTED AND SENT TO LAB
--- NOTE | 2021-03-16 12:15 | NUR ---
COVID SWAB DONE AND SENT TO LAB
[2021-03-16 12:20] LABS: ALANINE AMINOTRANSFERASE 18 U/L (12-78); ALKALINE PHOSPHATASE 112 U/L (46-116); ASPARTATE AMINOTRANSFERASE 25 U/L (15-37); BILIRUBIN,DIRECT 0.2 mg/dL (0.0-0.2); BILIRUBIN,TOTAL 0.6 mg/dL (0.2-1.0); TOTAL PROTEIN, SERUM 8.5 g/dL (6.4-8.2)
--- NOTE | 2021-03-16 12:35 | NUR ---
IV removed. Catheter intact and site benign. Pressure and 4x4 applied to site. No bleeding noted.Patient discharged to home in stable condition. Written and verbal after care instructions given. Patient verbalizes understanding of instruction.
[2021-03-16 12:36] VITALS: BP 138/68
== END 2021-03-16 12:36 | disposition home or self-care (01) ==
LOC: ER 10:50
DX: R53.1 Weakness (principal); Z20.822 Contact with and (suspected) exposure to COVID-19; Z86.16 Personal history of COVID-19; I10 Essential (primary) hypertension
CPT/HCPCS: 36415; 71045-TC; 80048-TC; 80076-TC; 83605-TC; 84484-TC; 85025-TC; 85730-TC; 87040-TC; C9803; G0480; U0003

== ENCOUNTER 2023-02-11 18:22 | Inpatient (IN) | payer OTHER ==
[~2023-02-11] VITALS: Ht 167.6 cm; Wt 74.4 kg
[2023-02-11] MEDS ORDERED: ACETAMINOPHEN ES 500 MG TABLET PO ONE (19:30)
[2023-02-11] MEDS ORDERED: IV NS 0.9% 1,000 ML BAG IV ONE ×2 (19:30→22:00)
[2023-02-11] MEDS ORDERED: ACETAMINOPHEN ES 500 MG TABLET ONE (19:32)
[2023-02-11 20:23] LABS: BASOPHILS % (AUTO) 0.3 % (0.0-2.0); HEMATOCRIT 36 % (33-45); LYMPHOCYTES # (AUTO) 0.4 K/uL (0.8-4.8); LYMPHOCYTES % (AUTO) 9.3 % (20.0-44.0); MEAN CORPUSCULAR HEMOGLOBIN 23 PG (26.0-33.0); MEAN CORPUSCULAR HGB CONC 31 g/dl (31.0-36.0); MEAN CORPUSCULAR VOLUME 75 fL (82-100); MONOCYTES # (AUTO) 0.6 K/uL (0.1-1.30); MONOCYTES % (AUTO) 13.6 % (2.0-12.0); NEUTROPHILS # (AUTO) 3.1 K/uL (1.8-8.9); NEUTROPHILS % (AUTO) 76.8 % (43.0-81.0); PLATELET COUNT (AUTO) 174 K/uL (150-450); RED CELL DISTRIBUTION WIDTH 14.8 % (11.5-15.0); WHITE BLOOD COUNT (AUTO) 4.1 K/uL (4.3-11.0)
[2023-02-11] MEDS ORDERED: CEFTRIAXONE 1 G in IV D5W 50 ML IV ONE (20:30)
[2023-02-11] MEDS ORDERED: AZITHROMYCIN 500 MG in IV D5W 250 ML IV ONE (20:30)
[2023-02-11] MEDS ORDERED: AZITHROMYCIN 500 MG VIAL ONE (20:36)
[2023-02-11] MEDS ORDERED: CEFTRIAXONE 1GM BAG (ER ONLY) 50 ML IV ONE (20:36)
[2023-02-11 20:39] LABS: INR 1.13 (0.91-1.10); PARTIAL THROMBOPLASTIN TIME 22.5 SEC (24.3-34.3); PROTHROMBIN TIME 11.9 SECS (9.2-11.1)
[2023-02-11 20:43] LABS: ALANINE AMINOTRANSFERASE 27 U/L (12-78); ALBUMIN 3.5 g/dL (3.4-5.0); ALKALINE PHOSPHATASE 93 U/L (46-116); ASPARTATE AMINOTRANSFERASE 86 U/L (15-37); BILIRUBIN,DIRECT 0.1 mg/dL (0.0-0.2); BILIRUBIN,TOTAL 0.3 mg/dL (0.2-1.0); CALCIUM, SERUM 9.4 mg/dL (8.5-10.1); CARBON DIOXIDE 24 mmol/L (21-32); CHLORIDE 102 mmol/L (98-107); CREATININE 1.7 mg/dL (0.6-1.3); GLUCOSE 90 mg/dL (74-106); POTASSIUM 4.2 mmol/L (3.5-5.1); SODIUM SERUM 139 mmol/L (136-145); TOTAL PROTEIN, SERUM 7.6 g/dL (6.4-8.2); UREA NITROGEN, BLOOD 19 mg/dL (7-18)
[2023-02-11 20:45] LABS: LACTIC ACID 1.3 mmol/L (0.4-2.0)
[2023-02-11 22:05] LABS: APPEARANCE,URINE SLIGHTLY CLOUDY (CLEAR); BILIRUBIN,URINE 1+ (NEGATIVE); BLOOD, URINE 2+ Ery/uL (NEGATIVE); COLOR,URINE YELLOW (YELLOW); KETONES,URINE 2+ mg/dL (NEGATIVE); LEUKOCYTE ESTERASE ,URINE 3+ (NEGATIVE); NITRITE, URINE NEGATIVE (NEGATIVE); PROTEIN,URINE 1+ mg/dl (NEGATIVE); UGLUCOSE NEGATIVE (NEGATIVE)
[2023-02-11 22:35] LABS: ADD URINE CULTURE YES; BACTERIA,URINE 3+ /HPF (None Seen); RBC,URINE 21-50 /HPF (0-2); SQUAMOUS EPITHELIAL CELL,UR 0-2 /HPF (None Seen); WBC,URINE 51-80 /HPF (0-3)
[2023-02-11 23:54] LABS: LYMPHOCYTES % (MANUAL) 13 % (16-48); MONOCYTES % (MANUAL) 10 % (0-11.0); NEUTROPHILS % (MANUAL) 77 (42-76); PLATELET ESTIMATE ADEQUATE
[2023-02-12] MEDS ORDERED: HYDR12.55 PO (02:17)
[2023-02-12] MEDS ORDERED: FERR324T PO (02:17)
[2023-02-12] MEDS ORDERED: MEMA10TA PO (02:17)
[2023-02-12 07:00] VITALS: BP 143/51; TEMP 102.2; O2SAT 98
[2023-02-12] MEDS: ACETAMINOPHEN 325 MG TABLET PO PRN ×2 (07:52→21:27)
[2023-02-12] MEDS: IV D5/ 0.9% NACL 1,000 ML IV PRN ×2 (07:53→20:25)
[2023-02-12 08:00] VITALS: BP 143/51; TEMP 102.2; O2SAT 98
[2023-02-12] MEDS: ASPIRIN 81 MG TAB.CHEW PO SCH (08:44)
[2023-02-12] MEDS ORDERED: NITROGLYCERIN 0.4 MG/TAB BOTTLE SL ONE (09:00)
[2023-02-12] MEDS ORDERED: METOPROLOL TARTRATE INJ 5 MG/5 ML AMPUL IVP PRN (09:00)
[2023-02-12 09:25] LABS: BASOPHILS # (AUTO) 0.1 K/uL (0.0-0.2); EOSINOPHILS % (AUTO) 0.1 % (0.0-6.0); HEMATOCRIT 35 % (33-45); HEMOGLOBIN 10.6 g/dL (11.5-14.8); LYMPHOCYTES # (AUTO) 0.4 K/uL (0.8-4.8); LYMPHOCYTES % (AUTO) 13.5 % (20.0-44.0); MEAN CORPUSCULAR HEMOGLOBIN 23 PG (26.0-33.0); MEAN CORPUSCULAR HGB CONC 31 g/dl (31.0-36.0); MEAN CORPUSCULAR VOLUME 75 fL (82-100); MONOCYTES # (AUTO) 0.3 K/uL (0.1-1.30); MONOCYTES % (AUTO) 9.9 % (2.0-12.0); NEUTROPHILS # (AUTO) 2.4 K/uL (1.8-8.9); NEUTROPHILS % (AUTO) 74.5 % (43.0-81.0); PLATELET COUNT (AUTO) 145 K/uL (150-450); RED BLOOD CELL COUNT(AUTO) 4.62 MIL/uL (4.0-5.2); RED CELL DISTRIBUTION WIDTH 15.1 % (11.5-15.0); WHITE BLOOD COUNT (AUTO) 3.3 K/uL (4.3-11.0)
[2023-02-12 09:55] LABS: ALANINE AMINOTRANSFERASE 26 U/L (12-78); ALBUMIN 2.9 g/dL (3.4-5.0); ALKALINE PHOSPHATASE 82 U/L (46-116); ASPARTATE AMINOTRANSFERASE 109 U/L (15-37); BILIRUBIN,TOTAL 0.3 mg/dL (0.2-1.0); CALCIUM, SERUM 8.6 mg/dL (8.5-10.1); CARBON DIOXIDE 22 mmol/L (21-32); CHLORIDE 106 mmol/L (98-107); CREATININE 1.4 mg/dL (0.6-1.3); GLUCOSE 88 mg/dL (74-106); POTASSIUM 3.8 mmol/L (3.5-5.1); SODIUM SERUM 140 mmol/L (136-145); TOTAL PROTEIN, SERUM 6.7 g/dL (6.4-8.2); UREA NITROGEN, BLOOD 16 mg/dL (7-18)
[2023-02-12 10:17] LABS: THYROID STIMULATING HORMONE 0.466 uIU/mL (0.358-3.74)
[2023-02-12 14:02] LABS: ANISOCYTOSIS 1+; HYPOCHROMASIA 1+; LYMPHOCYTES % (MANUAL) 16 % (16-48); MONOCYTES % (MANUAL) 10 % (0-11.0); NEUTROPHILS % (MANUAL) 74 (42-76); PLATELET ESTIMATE ADEQUATE
[2023-02-12 16:00] VITALS: BP 160/67; TEMP 98.6; O2SAT 99
[2023-02-12 20:00] VITALS: BP 128/81; TEMP 100.4; O2SAT 98
[2023-02-12] MEDS: CEFTRIAXONE 1 G in IV D5W 50 ML IV SCH (20:21)
[2023-02-12] MEDS: ATORVASTATIN 10 MG TABLET PO SCH (21:17)
[2023-02-12] MEDS: HEPARIN SODIUM, PORCINE 5000 UNITS/1 ML VIAL SQ SCH (21:18)
[2023-02-13] VITALS: BP 134/89; TEMP 79; TEMP 97.7; O2SAT 98
[2023-02-13 04:00] VITALS: BP 156/67; TEMP 98.2; O2SAT 99
[2023-02-13 09:03] LABS: BASOPHILS % (AUTO) 0.4 % (0.0-2.0); EOSINOPHILS % (AUTO) 0.3 % (0.0-6.0); HEMATOCRIT 36 % (33-45); HEMOGLOBIN 11.1 g/dL (11.5-14.8); LYMPHOCYTES # (AUTO) 0.7 K/uL (0.8-4.8); LYMPHOCYTES % (AUTO) 25.2 % (20.0-44.0); MEAN CORPUSCULAR HEMOGLOBIN 23 PG (26.0-33.0); MEAN CORPUSCULAR HGB CONC 31 g/dl (31.0-36.0); MEAN CORPUSCULAR VOLUME 75 fL (82-100); MONOCYTES # (AUTO) 0.4 K/uL (0.1-1.30); MONOCYTES % (AUTO) 14.9 % (2.0-12.0); NEUTROPHILS # (AUTO) 1.6 K/uL (1.8-8.9); NEUTROPHILS % (AUTO) 59.2 % (43.0-81.0); RED BLOOD CELL COUNT(AUTO) 4.81 MIL/uL (4.0-5.2); RED CELL DISTRIBUTION WIDTH 15.4 % (11.5-15.0); WHITE BLOOD COUNT (AUTO) 2.7 K/uL (4.3-11.0)
[2023-02-13 09:26] LABS: CALCIUM, SERUM 8.5 mg/dL (8.5-10.1); POTASSIUM 4.5 mmol/L (3.5-5.1)
[2023-02-13] MEDS: ASPIRIN 81 MG TAB.CHEW PO SCH (09:49)
[2023-02-13] MEDS: HEPARIN SODIUM, PORCINE 5000 UNITS/1 ML VIAL SQ SCH ×2 (09:50→21:41)
[2023-02-13 09:54] LABS: NUCLEATED RED BLOOD CELLS 0.1 /100WBC (0.0-0.0)
[2023-02-13 10:45] LABS: PLATELET COUNT (AUTO) 144 K/uL (150-450)
[2023-02-13 11:16] LABS: EOSINOPHILS % (MANUAL) 1 % (0-4); LYMPHOCYTES % (MANUAL) 26 % (16-48); MONOCYTES % (MANUAL) 13 % (0-11.0); NEUTROPHILS % (MANUAL) 60 (42-76)
[2023-02-13 11:17] LABS: ANISOCYTOSIS 1+; HYPOCHROMASIA 1+; OVALOCYTES 1+; PLATELET ESTIMATE DECREASED
[2023-02-13 20:00] VITALS: BP 145/58; TEMP 98.4; O2SAT 99
[2023-02-13] MEDS: CEFTRIAXONE 1 G in IV D5W 50 ML IV SCH (21:19)
[2023-02-13] MEDS: ATORVASTATIN 10 MG TABLET PO SCH (21:40)
[2023-02-13] MEDS: ACETAMINOPHEN 325 MG TABLET PO PRN (21:47)
[2023-02-13 23:25] VITALS: BP 126/45; TEMP 97.6; O2SAT 99
[2023-02-14 05:00] VITALS: BP 154/57; TEMP 98.1; O2SAT 100
[2023-02-14 07:50] LABS: BASOPHILS % (AUTO) 0.4 % (0.0-2.0); EOSINOPHILS % (AUTO) 0.5 % (0.0-6.0); HEMATOCRIT 39 % (33-45); HEMOGLOBIN 11.6 g/dL (11.5-14.8); LYMPHOCYTES % (AUTO) 43.3 % (20.0-44.0); MEAN CORPUSCULAR HEMOGLOBIN 23 PG (26.0-33.0); MEAN CORPUSCULAR HGB CONC 30 g/dl (31.0-36.0); MEAN CORPUSCULAR VOLUME 77 fL (82-100); MONOCYTES # (AUTO) 0.4 K/uL (0.1-1.30); NEUTROPHILS # (AUTO) 0.9 K/uL (1.8-8.9); NEUTROPHILS % (AUTO) 39.8 % (43.0-81.0); PLATELET COUNT (AUTO) 163 K/uL (150-450); RED BLOOD CELL COUNT(AUTO) 5.03 MIL/uL (4.0-5.2); RED CELL DISTRIBUTION WIDTH 15.8 % (11.5-15.0); WHITE BLOOD COUNT (AUTO) 2.4 K/uL (4.3-11.0)
[2023-02-14 08:19] LABS: CALCIUM, SERUM 9.1 mg/dL (8.5-10.1); CREATININE 1.1 mg/dL (0.6-1.3); POTASSIUM 3.9 mmol/L (3.5-5.1)
[2023-02-14 08:22] VITALS: BP 144/58; TEMP 98.2; O2SAT 98
[2023-02-14] MEDS ORDERED: LEVO250T59 PO ×2 (08:50→08:55)
[2023-02-14] MEDS ORDERED: FERR325T23 PO (08:55)
[2023-02-14] MEDS: ASPIRIN 81 MG TAB.CHEW PO SCH (08:58)
[2023-02-14] MEDS: VALSARTAN 80 MG TABLET PO SCH (08:59)
[2023-02-14] MEDS: HEPARIN SODIUM, PORCINE 5000 UNITS/1 ML VIAL SQ SCH ×2 (09:00→20:59)
[2023-02-14 11:34] LABS: PLATELET ESTIMATE ADEQUATE
[2023-02-14 11:35] LABS: ANISOCYTOSIS 1+; OVALOCYTES 1+
[2023-02-14 12:00] VITALS: BP 134/59; TEMP 98.1; O2SAT 96
[2023-02-14 16:08] VITALS: BP 119/69; TEMP 97.9; O2SAT 98
[2023-02-14 20:00] VITALS: BP 133/70; TEMP 99; O2SAT 99
[2023-02-14] MEDS: CEFTRIAXONE 1 G in IV D5W 50 ML IV SCH (20:25)
[2023-02-14] MEDS: ATORVASTATIN 10 MG TABLET PO SCH (21:01)
[2023-02-14] MEDS: ACETAMINOPHEN 325 MG TABLET PO PRN (21:09)
[2023-02-15] VITALS: BP 154/60; TEMP 98.4; TEMP 98.6; O2SAT 100
[2023-02-15] MEDS: IV D5/ 0.9% NACL 1,000 ML IV PRN (01:39)
[2023-02-15 04:00] VITALS: BP 147/62; TEMP 98.2; O2SAT 97
[2023-02-15 08:00] VITALS: BP 144/54; TEMP 98; O2SAT 98
[2023-02-15] MEDS: VALSARTAN 80 MG TABLET PO SCH (08:57)
[2023-02-15] MEDS: ASPIRIN 81 MG TAB.CHEW PO SCH (08:57)
[2023-02-15] MEDS: HEPARIN SODIUM, PORCINE 5000 UNITS/1 ML VIAL SQ SCH ×2 (08:58→20:26)
[2023-02-15] MEDS ORDERED: IOHEXOL-350 100 ML VIAL IV ONE ×3 (11:23→11:57)
[2023-02-15] MEDS ORDERED: CT SWABBABLE VALVE TRANS SET 1 EA INFUS.SET MC ONE (11:23)
[2023-02-15] MEDS ORDERED: METOPROLOL TARTRATE INJ 5 MG/5 ML AMPUL ONE ×2 (11:23→11:41)
[2023-02-15] MEDS ORDERED: IV NS 0.9% 250 ML IV ONE (11:24)
[2023-02-15] MEDS: METOPROLOL TARTRATE INJ 5 MG/5 ML AMPUL IVP PRN ×4 (11:26→11:41)
[2023-02-15] MEDS ORDERED: NITROGLYCERIN 0.4 MG/TAB BOTTLE SL ONE (11:30)
[2023-02-15 16:00] VITALS: BP 127/61; TEMP 98.2; O2SAT 99
[2023-02-15 20:00] VITALS: BP 136/76; TEMP 98.2; O2SAT 99
[2023-02-15] MEDS: CEFTRIAXONE 1 G in IV D5W 50 ML IV SCH (20:22)
[2023-02-15 20:54] VITALS: BP 136/76; TEMP 98.2; O2SAT 99
[2023-02-15] MEDS: ATORVASTATIN 10 MG TABLET PO SCH (21:09)
[2023-02-15] MEDS: ACETAMINOPHEN 325 MG TABLET PO PRN (22:27)
[2023-02-16] VITALS: BP 125/62; TEMP 98.1; O2SAT 99
[2023-02-16 00:47] VITALS: BP 125/62; TEMP 98.1; O2SAT 99
[2023-02-16 07:00] VITALS: BP 125/55; TEMP 97.9; O2SAT 100
[2023-02-16] MEDS: ASPIRIN 81 MG TAB.CHEW PO SCH (08:49)
[2023-02-16 08:50] VITALS: BP 125/55
[2023-02-16] MEDS: VALSARTAN 80 MG TABLET PO SCH (08:50)
[2023-02-16] MEDS: HEPARIN SODIUM, PORCINE 5000 UNITS/1 ML VIAL SQ SCH (08:53)
== END 2023-02-16 09:30 | disposition home health service (06) | DRG 871 ==
LOC: ER 18:37 → TELE 02-12 03:24 → MED 02-16 09:18
PROVIDERS: ADMIT Internal Medicine; ATTEND Internal Medicine
PROC: 05H633Z Insertion of Infusion Device into Left Subclavian Vein, Percutaneous Approach (ICD-10-PCS; principal; 2023-02-13)
PROC: B547ZZA Ultrasonography of Left Subclavian Vein, Guidance (ICD-10-PCS; 2023-02-13)
PROC: 05H533Z Insertion of Infusion Device into Right Subclavian Vein, Percutaneous Approach (ICD-10-PCS; 2023-02-14)
PROC: B546ZZA Ultrasonography of Right Subclavian Vein, Guidance (ICD-10-PCS; 2023-02-14)
DX: A41.9 Sepsis, unspecified organism (principal); I21.A1 Myocardial infarction type 2; N17.9 Acute kidney failure, unspecified; N39.0 Urinary tract infection, site not specified; F03.90 Unspecified dementia, unspecified severity, without behavioral disturbance, psychotic disturbance, mood disturbance, and anxiety; D50.9 Iron deficiency anemia, unspecified; R07.9 Chest pain, unspecified; J10.1 Influenza due to other identified influenza virus with other respiratory manifestations; I10 Essential (primary) hypertension; R29.6 Repeated falls; Z20.822 Contact with and (suspected) exposure to COVID-19
CPT/HCPCS: 36415; 70450-TC; 71045-TC; 71250-TC; 72125-TC; 73030-TC; 75574; 76770-TC; 80048-TC; 80053-TC; 80076-TC; 81001; 83540-TC; 83605-TC; 84443-TC; 84484-TC; 85025-TC; 85730-TC; 87040-TC; 87086-TC; 93307-TC; 97116-TC; 97530-TC; A4223; C9803; G0378; J0456; J0696; J1644; J3490; J7030; J7042; J7050; J7060; Q9967